=== PATIENT | female | born 1935 | race Caucasian/White ===

== ENCOUNTER 2017-03-30 17:45 | Emergency (ER) | payer MEDICARE ==
[2017-03-30] MEDS ORDERED: TDAP Vaccine 0.5 mL Syr IM ONE (22:30)
--- NOTE | 2017-03-31 10:58 | CT ---
PROCEDURE: CT HEAD WITHOUT CONTRAST. HISTORY: TRAUMA - LACERATION TO BACK OF HEAD COMPARISON: None available. TECHNIQUE: Axial computed tomography images were obtained through the head/brain without intravenous contrast. Radiation dose: Total exam DLP = print mGy-cm. This CT exam was performed using one or more of the following dose reduction techniques: Automated exposure control, adjustment of the mA and/or kV according to patient size, and/or use of iterative reconstruction technique. FINDINGS: HEMORRHAGE: No intracranial hemorrhage. BRAIN: No mass effect or edema. Age related senescent change VENTRICLES: Unremarkable. No hydrocephalus. CALVARIUM: Unremarkable. PARANASAL SINUSES: Unremarkable as visualized. No significant inflammatory changes. MASTOID AIR CELLS: Unremarkable as visualized. No inflammatory changes. OTHER FINDINGS: Orbital asymmetry incompletely visualized. Malin be correlated with findings on physical examination and medical history. IMPRESSION: No acute intracranial abnormalities. No significant findings to account for the clinical presentation. Concordant results (preliminary interpretation) provided by [facility]. Procedure Completed: 20:09. Preliminary ([facility]) Report: Dictated and Authenticated: 20:59. Final Interpretation: 10:56. March 31, 2017.
== END 2017-04-01 09:17 | disposition home or self-care (01) ==
LOC: ED 17:45
DX: S01.01XA Laceration without foreign body of scalp, initial encounter (principal); W01.198A Fall on same level from slipping, tripping and stumbling with subsequent striking against other object, initial encounter; Y93.89 Activity, other specified; Y92.008 Other place in unspecified non-institutional (private) residence as the place of occurrence of the external cause